=== PATIENT | male | born 1960 | race Caucasian/White ===

== ENCOUNTER 2018-04-03 09:40 | Emergency (ER) | payer OTHER ==
[~2018-04-03] VITALS: Ht 182.9 cm; Wt 99.5 kg
[~2018-04-03 09:40] MED LIST: BAYER BACK & B1 EACH PO; LO-DOSE ASPIRIN81 M1 PO; MOTRIN PM CAPL1 EAC1 PO; NORCO 5/3251 TABLET PO; TRAMADOL HCL50 MG PO
[2018-04-03 11:45] LABS: HEMATOCRIT 44.8 % (38.0-50.0); HEMOGLOBIN 15.3 G/DL (12.5-16.6); MCH 30.3 PG (29.0-34.0); MCHC 34.2 G/DL (30.0-36.0); MCV 88.7 FL (86-99); PLATELET COUNT 188 K/uL (156-360); RBC DIS.WIDTH-CV 12.6 % (11.8-14.6); RBC DIS.WIDTH-SD 41.2 % (39-53); RED BLOOD COUNT 5.05 M/uL (4.00-5.50); WHITE BLOOD COUNT 6.7 K/uL (4.1-10.2)
[2018-04-03 11:56] LABS: CHLORIDE 102 mEq/L (99-109); POTASSIUM 4.5 mEq/L (3.7-5.4); SODIUM 139 mEq/L (136-147)
[2018-04-03 11:57] LABS: GLUCOSE 92 mg/dL (70-99)
[2018-04-03 12:01] LABS: CREATININE 1.2 mg/dL (0.6-1.3); GFR ESTIMATE (CALCULATED) > 59 mL/min/ (58.99-99999)
[2018-04-03 12:02] LABS: UREA NITROGEN (BUN) 19 mg/dL (9-23)
[2018-04-03 12:52] VITALS: BP 137/79
== END 2018-04-03 12:52 | disposition home or self-care (01) ==
LOC: EME 09:40
PROVIDERS: Emergency Medicine
DX: M71.22 Synovial cyst of popliteal space [Baker], left knee (principal); M79.662 Pain in left lower leg; I10 Essential (primary) hypertension; Z79.82 Long term (current) use of aspirin
CPT/HCPCS: 80048; 85027; 93971; 99281; 99283